=== PATIENT | male | born 1980 | race Caucasian/White ===

== ENCOUNTER 2016-03-19 08:25 | Emergency (ER) | payer SELFPAY ==
[2016-03-19] MEDS ORDERED: ONDANSETRON HCL 4 MG TAB.RAPDIS ONE (08:54)
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
[2016-03-19 09:11] VITALS: BP 130/58
[2016-03-19] MEDS ORDERED: ONDANSETRON HCL 4 MG TAB.RAPDIS PO ONE (09:29)
== END 2016-03-19 09:10 ==
LOC: ED 08:25
DX: S09.90XA Unspecified injury of head, initial encounter (principal)
CPT/HCPCS: A9270 ×2; 99282